=== PATIENT | male | born 1990 ===

== ENCOUNTER 2021-10-27 00:59 | Emergency (ER) | payer BC ==
[2021-10-27] MEDS ORDERED: Sulfamethoxazole/Trimethoprim 800-160 MG Tab PO ONE (01:58)
== END 2021-10-27 03:06 | disposition home or self-care (01) ==
LOC: MW.ED 00:59
DX: L02.01 Cutaneous abscess of face (principal)
CPT/HCPCS: 99283; A9270; 10060

== ENCOUNTER 2024-04-26 21:45 | Emergency (ER) | payer BC ==
[2024-04-26] MEDS: Acetaminophen/HYDROcodone 325-5 MG Tab PO ONE (22:14)
[2024-04-26] MEDS: Ketorolac 30 MG/ML SDV IM ONE (22:16)
== END 2024-04-26 23:05 | disposition home or self-care (01) ==
LOC: MW.ED 21:45
DX: S99.911A Unspecified injury of right ankle, initial encounter (principal); X50.1XXA Overexertion from prolonged static or awkward postures, initial encounter
CPT/HCPCS: 73610; 96372; 99283; J1885